=== PATIENT | female | born 1965 | race Caucasian/White ===

== ENCOUNTER 2016-12-08 08:56 | Emergency (ER) | payer OTHER ==
[~2016-12-08] VITALS: Ht 160 cm; Wt 118.5 kg
[2016-12-08] MEDS ORDERED: PRILOSEC20 MG PO (09:33)
[2016-12-08] MEDS ORDERED: TOPAMAX50 MG PO (09:33)
[2016-12-08] MEDS ORDERED: PREDNISONE50 MG PO (11:04)
[2016-12-08] MEDS ORDERED: PROAIR HFA8.5 GM IH (11:04)
[2016-12-08] MEDS ORDERED: ZITHROMAX Z-PA250 MG PO (11:04)
[2016-12-08 11:23] VITALS: BP 101/76
== END 2016-12-08 11:30 | disposition home or self-care (01) ==
LOC: EME 08:56
DX: J45.901 Unspecified asthma with (acute) exacerbation (principal); J20.9 Acute bronchitis, unspecified; F17.200 Nicotine dependence, unspecified, uncomplicated
CPT/HCPCS: 71020; 94640; 99281; 99285; J7512

== ENCOUNTER 2016-12-10 20:57 | Observation (INO) | payer OTHER ==
[~2016-12-10] VITALS: Ht 162.6 cm; Wt 123.9 kg
[~2016-12-10 20:57] MED LIST: PREDNISONE50 MG PO; PRILOSEC20 MG PO; PROAIR HFA8.5 GM IH; TOPAMAX50 MG PO; ZITHROMAX Z-PA250 MG PO
[2016-12-10 21:41] LABS: HEMATOCRIT 36.6 % (36.0-46.0); MCH 30.9 PG (29.0-34.0); MCHC 33.1 G/DL (30.0-36.0); MCV 93.6 FL (83-99); MEAN PLAT.VOLUME 10.8 uM^3 (9.5-12.4); PLATELET COUNT 271 K/uL (156-360); RBC DIS.WIDTH-CV 14.7 % (11.8-14.6); RBC DIS.WIDTH-SD 50.2 % (39-53); RED BLOOD COUNT 3.91 M/uL (3.80-5.20); WHITE BLOOD COUNT 6.8 K/uL (4.1-10.2)
[2016-12-10 21:51] LABS: CHLORIDE 115 mEq/L (99-109)
[2016-12-10 21:52] LABS: POTASSIUM 4.1 mEq/L (3.7-5.4); SODIUM 143 mEq/L (136-147)
[2016-12-10 21:53] LABS: GLUCOSE 154 mg/dL (70-99)
[2016-12-10 21:55] LABS: ANION GAP 10 MEQ/L (2-14)
[2016-12-10 21:57] LABS: GFR ESTIMATE (CALCULATED) > 59 mL/min/
[2016-12-10 21:58] LABS: UREA NITROGEN (BUN) 15 mg/dL (9-23)
[2016-12-11] MEDS ORDERED: AZITHROMYCIN250 MG1 PO (01:21)
[2016-12-11] MEDS ORDERED: VYVANSE30 MG PO (01:22)
[2016-12-11] MEDS ORDERED: SUBUTEX PO (01:24)
[2016-12-11 02:39] VITALS: BP 101/58
[2016-12-11 07:31] VITALS: BP 99/50
[2016-12-11 08:59] LABS: Estimated Average Glucose 100 mg/dL (70-123); HEMOGLOBIN A1c (GLYCOHEMOGLOB) 5.1 % HGB (Below 5.7)
[2016-12-11 09:48] LABS: HEMATOCRIT 35.1 % (36.0-46.0); MCH 31.9 PG (29.0-34.0); MCHC 33.3 G/DL (30.0-36.0); MCV 95.6 FL (83-99); MEAN PLAT.VOLUME 10.8 uM^3 (9.5-12.4); PLATELET COUNT 245 K/uL (156-360); RBC DIS.WIDTH-SD 52.2 % (39-53); RED BLOOD COUNT 3.67 M/uL (3.80-5.20); WHITE BLOOD COUNT 7.8 K/uL (4.1-10.2)
[2016-12-11 10:11] LABS: ANION GAP 12 MEQ/L (2-14); CHLORIDE 110 MEQ/L (99-109); GFR ESTIMATE (CALCULATED) > 59 mL/min/; GLUCOSE 196 mg/dL (70-99); POTASSIUM 4.1 MEQ/L (3.7-5.4); SAMPLE HEMOLYSIS CHECK 0; SAMPLE ICTERIC CHECK 0; SAMPLE LIPEMIA CHECK 0; SODIUM 139 MEQ/L (136-147); UREA NITROGEN (BUN) 14 mg/dL (9-23)
[2016-12-11] MEDS ORDERED: NICOTINE PATCH1 EAC2 TD (10:19)
[2016-12-11] MEDS ORDERED: SPIRIVA RESPIMAT4 G1 IH (10:19)
[2016-12-11] MEDS ORDERED: ADVAIR HFA120 INHALA IH (10:19)
[2016-12-11] MEDS ORDERED: PREDNISONE10 M1 PO (10:19)
[2016-12-11] MEDS ORDERED: ZUBSOLV 2.9-0.1 EACH SL (10:21)
[2016-12-11] MEDS ORDERED: PULMICORT FLEX90 MCG IH (11:18)
[2016-12-11 11:46] VITALS: BP 100/59
[2016-12-15 19:35] LABS: ALPHA-2-MACROGLOBULIN 216 mg/dL (106-279); ALT 17 U/L (6-29); FIBROSIS STAGE F0 (()); GGT 11 U/L (3-55); HAPTOGLOBIN 104 mg/dL (43-212); REFERENCE ID 1519598 (()); TOTAL BILIRUBIN 0.3 mg/dL (0.2-1.2)
== END 2016-12-11 13:05 | disposition home or self-care (01) ==
LOC: EME 20:57 → EDOF 12-11 01:13 → 5WEST 12-11 02:32
PROVIDERS: Hospitalist
DX: J44.1 Chronic obstructive pulmonary disease with (acute) exacerbation (principal); J45.901 Unspecified asthma with (acute) exacerbation; E87.2 Acidosis; R73.9 Hyperglycemia, unspecified; F11.20 Opioid dependence, uncomplicated; F17.200 Nicotine dependence, unspecified, uncomplicated; E66.01 Morbid (severe) obesity due to excess calories; Z68.42 Body mass index [BMI] 45.0-49.9, adult; N39.3 Stress incontinence (female) (male); B19.20 Unspecified viral hepatitis C without hepatic coma
CPT/HCPCS: 71020; 80048; 82172 90; 82247 90; 82977 90; 83010 90; 83036; 83883 90; 85027; 87902 90; 94640; 94640 76; 94644; 99202; 99281; 99285; G0378; J1100; J3475